=== PATIENT | female | born 2000 | race Hispanic/Latino ===

== ENCOUNTER → 2023-10-31 10:13 | Outpatient (CLI) | payer OTHER, SELFPAY ==
--- NOTE | 2023-10-31 10:23 | DI.RAD.S_ITS ---
PROCEDURE: XR CHEST 2V INDICATIONS: resp. chest pain TECHNIQUE: 2 views of the chest were acquired. COMPARISON: None. FINDINGS: Surgical changes and devices: None. Lungs and pleura: Lungs are clear. No pleural effusions or pneumothorax. Mediastinum: Mediastinal contours are normal. Heart size is normal. Bones and chest wall: No suspicious bony abnormalities. Soft tissues appear unremarkable. IMPRESSION: No acute cardiopulmonary abnormality is seen. Dictated by: Jose Ward M.D. on 10/31/2023 at 13:00 Approved by: Jose Ward M.D. on 10/31/2023 at 13:00
== END ==
PROVIDERS: Referring Provider Chiropractor; Visit Provider Chiropractor
DX: R07.1 Chest pain on breathing (principal)
CPT/HCPCS: 71046